=== PATIENT | female | born 1990 | race African-American/Black ===

== ENCOUNTER 2021-02-26 11:32 | Emergency (ER) | payer OTHER ==
[~2021-02-26] VITALS: Ht 162.6 cm; Wt 92.0 kg
[2021-02-26 12:35] VITALS: BP 113/81
[2021-02-26] MEDS ORDERED: CYCL-331 PO (12:57)
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
[2021-02-26] MEDS ORDERED: CYCLOBENZAPRINE 10 MG TABLET. PO ONE (13:15)
[2021-02-26] MEDS ORDERED: KETOROLAC 15 MG/ML VIAL. IM ONE (13:15)
== END 2021-02-26 13:17 | disposition home or self-care (01) ==
LOC: ER 11:32
DX: M54.41 Lumbago with sciatica, right side (principal); J45.909 Unspecified asthma, uncomplicated; Z98.51 Tubal ligation status; Z88.1 Allergy status to other antibiotic agents
CPT/HCPCS: 96372; 99283; J1885

== ENCOUNTER 2021-05-05 12:14 | Emergency (ER) | payer OTHER ==
[~2021-05-05] VITALS: Ht 162.6 cm; Wt 91.9 kg
[~2021-05-05 12:14] MED LIST: CYCL-331 PO
--- NOTE | 2021-05-05 12:59 | PHYS DOC ---
Past History Past Medical History: Asthma (ANGEL SPICER APRN) Past Surgical History: , Tubal ligation, Other Additional Past Surgical Histo: ganglion cyst, I&D of abscess (ANGEL SPICER APRN) Alcohol Use: Rarely (ANGEL SPICER APRN) General Adult EDM: Chief Complaint: PELVIC PAIN HPI: HPI: Patient is a 30-year-old female who presents to the ER for bilateral pelvic pain and low back pain that started 1 hour prior to arrival. Patient rates her pain 10 out of 10. It does not radiate. She took Aleve prior to arrival. Patient is also reporting nausea. She denies urinary symptoms, vaginal discharge, STD concern, vaginal bleeding, vomiting, fevers, diarrhea. Her last bowel movement was 2 days ago which she reports is normal for her. She reports that she is having flatus. (ANGEL SPICER APRN) Review of Systems: Review of Systems: 14 body systems of the review of systems have been reviewed. See HPI for pertinent positive and negative responses, otherwise all other systems are negative, nonpertinent or noncontributory (ANGEL SPICER APRN) Allergies: Allergies: Allergies Coded Allergies Type Severity Reaction Last Updated Verified amoxicillin Allergy Unknown 02/26/21 Yes (ANGEL SPICER APRN) Physical Exam: PE: Constitutional: Well developed, well nourished, no acute distress, non-toxic appearance. [] HENT: Normocephalic, atraumatic Eyes: PERRL, conjunctiva normal, no discharge. [] Neck: Normal range of motion, no tenderness, supple, no stridor. [] Cardiovascular:Heart rate regular rhythm, no murmur [] Lungs & Thorax: Bilateral breath sounds clear to auscultation [] Abdomen: Bowel sounds normal, soft, no masses, no pulsatile masses,, bilateral lower abdomen/pelvic pain with palpation [] Skin: Warm, dry, no erythema, no rash. [] Back: No tenderness, bilateral CVA tenderness. [] Extremities: No tenderness, no cyanosis, no clubbing, ROM intact, no edema. [] Neurologic: Alert and oriented X 3, normal motor function, normal sensory function, no focal deficits noted. [] Psychologic: Affect normal, judgement normal, mood normal. [] (ANGEL SPICER APRN) Current Patient Data: Labs: Laboratory Tests Test 05/05/21 12:44 POC Urine HCG, Qualitative hcg negative (Negative) Vital Signs: Vital Signs Date Time Temp Pulse Resp B/P (MAP) Pulse Ox O2 Delivery O2 Flow Rate FiO2 05/05/21 12:31 99.1 130 18 114/71 97 Room Air (ANGEL SPICER APRN) EKG: EKG: [] (ANGEL SPICER APRN) Radiology/Procedures: Radiology/Procedures: [] (ANGEL SPICER APRN) Heart Score: C/O Chest Pain: No Risk Factors: Risk Factors: DM, Current or recent (<one month) smoker, HTN, HLP, family history of CAD, obesity. Risk Scores: Score 0 - 3: 2.5% MACE over next 6 weeks - Discharge Home Score 4 - 6: 20.3% MACE over next 6 weeks - Admit for Clinical Observation Score 7 - 10: 72.7% MACE over next 6 weeks - Early Invasive Strategies (ANGEL SPICER APRN) Course & Med Decision Making: Course & Med Decision Making Pertinent Labs and Imaging studies reviewed. (See chart for details) [] Patient is a 30-year-old female being seen in the ER for bilateral lower pelvic pain and bilateral lower back pain. A UA was performed and it showed UTI. Patient treated with an antibiotic in the ER. She is also given pain medication and nausea medication. Patient was offered a prescription for nausea medication to go home with which she declined.. I discussed with patient all findings and diagnostic testing as well as the need to follow-up with PCP for further evaluation and treatment or return to the ER if any new or worsening symptoms. Strict return precautions were also discussed at length. Patient voiced understanding and agreement with the plan. Patient is hemodynamically stable at the time of disposition. (ANGEL SPICER APRN) Dragon Disclaimer: Dragon Disclaimer: This electronic medical record was generated, in whole or in part, using a voice recognition dictation system. (ANGEL SPICER APRN) Attending Co-Sign The patient was seen and interviewed as well as examined at the bedside. The chart was reviewed. The case was discussed. Agree with the plan of care. (PUSHPA RYAN DO) Departure Departure: Impression: Primary Impression: UTI (urinary tract infection) Qualified Codes: N30.01 - Acute cystitis with hematuria Disposition: 01 HOME / SELF CARE / HOMELESS Condition: GOOD Referrals: PCP,NO (PCP) Patient Instructions: Urinary Tract Infection Additional Instructions: You were seen in the ER today for lower abdominal and back pain. Your uri nalysis was positive for a urinary tract infection. You were given nausea medication, medication to help with your pain, and an antibiotic in the ER. As we discussed, this antibiotic is a 1 dose and should clear up the infection. Discharged home with a prescription for Pyridium this should help with your urinary discomfort. Please take this as directed. You can take Tylenol and ibuprofen also for pain. Increase your fluids at home. Avoid bladder irritants like caffeine, alcohol, sugary beverages. If you develop severe abdominal pain, severe back pain, uncontrollable nausea or vomiting, fevers or urinary symptoms like burning with urination please return to the ER immediately. EMERGENCY DEPARTMENT GENERAL DISCHARGE INSTRUCTIONS Thank you for coming to [facility] ([facility]) today and trusting us with you care. We trust that you had a positivie experience in our Emergency Department. If you wish to speak to the department management, you may call the director at [phone]. YOUR FOLLOW UP INSTRUCTIONS ARE FOLLOWS: 1. Do you have a private Doctor? If you do not have a private doctor, please ask for a resource list of physicians or clinics that may be able to assist you with follow up care. 2. The Emergency Physician has interpreted your x-rays. The X-Ray specialist will also review them. If there is a change in the findings, you will be notified in 48 hours when at all possible. 3. A lab test or culture has been done, your results will be reviewed and you will be notified if you need a change in treatment. ADDITIONAL INSTRUCTIONS AND INFORMATION: 1. Your care today has been supervised by a physician who is specially trained in emergency care. Many problems require more than one evaluation for a complete diagnosis and treatment. We recommend that you schedule your follow up appointment as recommended to ensure complete treatment of you illness or injury. If you are unable to obtain follow up care and continue to have a problem, or if your condition worsens, we recommend that you return to the ED. 2. We are not able to safely determine your condition over the phone nor are we able to give sound medical advice over the phone. For these safety reasons, if you call for medical advice we will ask you to come to the ED for further evaluation. 3. If you have any questions regarding these discharge instructions please call the ED at [phone]. SAFETY INFORMATION: In the interest of safety, wellness, and injury prevention; we encourage you to wear your sealbelt, if you smoke; quite smoking, and we encourage family to use a protective helmet for bicycling and other sporting events that present an increased risk for head injury. IF YOUR SYMPTOMS WORSEN OR NEW SYMPTOMS DEVELOP, OR YOU HAVE CONCERNS ABOUT YOUR CONDITION; OR IF YOUR CONDITION WORSENS WHILE YOU ARE WAITING FOR YOUR FOLLOW UP APPOINTMENT; EITHER CONTACT YOUR PRIMARY CARE DOCTOR, THE PHYSICIAN WHOSE NAME AND NUMBER YOU WERE GIVEN, OR RETURN TO THE ED IMMEDIATELY. Scripts Phenazopyridine Hcl (PYRIDIUM) 200 Mg Tablet 1 TAB PO TID for urinary discomfort for 2 Days, #6 TAB 0 Refills Prov: ANGEL SPICER APRN 05/05/21 ANGEL SPICER APRN May 05, 2021 12:59 PUSHPA RYAN DO May 06, 2021 06:38
[2021-05-05 13:16] LABS: BILIRUBIN,URINE NEG (NEG); CLARITY,URINE CLOUDY; COLOR,URINE YELLOW; GLUCOSE,URINE NEG (NEG); NITRITE,URINE POS (NEG); UROBILINOGEN,URINE 0.2 mg/dL (0.2 mg/dL)
[2021-05-05 13:17] LABS: BACTERIA,URINE MOD /HPF (0-FEW); SQUAMOUS EPITHELIAL CELL,UR MOD /LPF; WBC,URINE TNTC /HPF (0-4)
[2021-05-05] MEDS ORDERED: FOSFOMYCIN TROMETHAMINE 3 GM PACKET PO ONE (13:30)
[2021-05-05] MEDS ORDERED: PHENAZOPYRIDINE 200 MG TABLET. PO ONE (13:30)
[2021-05-05] MEDS ORDERED: PHEN-318 PO (13:33)
[2021-05-05] MEDS ORDERED: ONDANSETRON ODT 4 MG TAB.RAPDIS PO ONE (13:45)
[2021-05-05 14:15] VITALS: BP 112/69
== END 2021-05-05 14:27 | disposition home or self-care (01) ==
LOC: ER 12:14
DX: N30.01 Acute cystitis with hematuria (principal); J45.909 Unspecified asthma, uncomplicated; Z98.890 Other specified postprocedural states; Z98.51 Tubal ligation status; Z88.1 Allergy status to other antibiotic agents
CPT/HCPCS: 81001; 81025; 87086; 99284; Q0162